=== PATIENT | male | born 1970 | race Caucasian/White ===

== ENCOUNTER 2018-06-20 15:25 | Emergency (ER) | payer OTHER ==
[2018-06-20 15:42] VITALS: BP 130/90; PULSE 90; TEMP 98.3; BMI 29.1
[2018-06-20] MEDS ORDERED: DIPHTH,PERTUSS(ACELL),TET 0.5 ML DISP.SYRIN IM ONE (16:15)
--- NOTE | 2018-06-20 16:15 | PDOC ---
Attending Attestation - Resident Resident Name: Chelsie Epstein - ED Attending Attestation I have performed the following: I have examined & evaluated the patient, The case was reviewed & discussed with the resident, I agree w/resident's findings & plan, Exceptions are as noted - HPI HPI: 06/20/18 16:57 Laceration of the right thumb this morning on a piece of sheet metal. Denies pain, bleeding, numbness or tingling in the fingertip, or limited range of motion of the thumb. Presents primarily because he feels he needs a tetanus update. Otherwise healthy without history of diabetes 06/20/18 16:58 - Physicial Exam PE: 06/20/18 16:58 PE: Afebrile, normal vital signs Right thumb: 1 cm superficial laceration of the radial aspect of the thumb, longitudinal, over the midportion of the first metacarpal. No bleeding. Wound edges are adequately approximated. No sensory deficit to the tip of the thumb. Full range of motion against resistance and flexion extension and apposition. Good capillary refill - Medical Decision Making 06/20/18 16:59 Impression: Superficial finger laceration Plan: Tetanus booster. Repair of laceration by Dr. Epstein. Follow-up and wound check 2-3 days.
--- NOTE | 2018-06-20 17:19 | PDOC ---
History of Present Illness - General Chief Complaint: Injury Stated Complaint: LACERATION TO FINGER - History of Present Illness Initial Comments: Deandre Johnson is an otherwise healthy 47yo man who presents today following a laceration to the right thumb. He states that he cut his thumb on a stove at home today. Initially he had some difficulty controlling the bleeding, but eventually it did stop with continued pressure. He washed the wound with water as well as hydrogen peroxide and applied a clean bandage. He has not had any numbness, difficulty with thumb movement, and has not noticed that his thumb is cold or pale. Mr Johnson presented to the ED today because he cut this thumb on metal and does not believe that his tetanus shot is up to date. He has no other concerns at this time. Past History - Past Medical History Allergies/Adverse Reactions: Allergies Allergy/AdvReac Type Severity Reaction Status Date / Time No Known Allergies Allergy Unverified 06/20/18 15:34 Home Medications: Ambulatory Orders No Home Medications 0 dose .ROUTE UTDICT 03/19/14 COPD: No - Suicide/Smoking/Psychosocial Hx Smoking History: Never smoked Hx Alcohol Use: No Substance Use Type: None Review of Systems - Review of Systems Comments:: General: No fevers, no chills, no weight or appetite change, no malaise HEENT: No changes in vision, no changes in hearing, no congestion, no sore throat CV: No chest pain, no palpitations, no LE edema Pulm: No SOB, no cough, no wheezing GI: No nausea or vomiting, no change in bowel habits, no melena : No frequency, no urgency, no dysuria Musc: No back pain, no joint swelling, no recent injury Skin: No rash, no lesions, no erythema Endo: No excessive thirst, no heat/cold intolerance Heme: No unusual bruising or bleeding, no swollen glands Neuro: No syncope, no numbness/tingling, no focal weakness Vasc: No claudication Psych: No recent change in mood, no SI or HI *Physical Exam - Vital Signs Last Vital Signs Temp Pulse Resp BP Pulse Ox 98.3 F 90 18 130/90 100 06/20/18 15:31 06/20/18 15:31 06/20/18 15:31 06/20/18 15:31 06/20/18 15:31 - Physical Exam Comments: General: Comfortable, no acute distress HEENT: PERRL, EOMI, MMM, voice normal, normal neck ROM, no LAD Cards: RRR, no murmur appreciated Pulm: Comfortable on room air, clear to auscultation bilaterally Ext: Right thumb with approximately 1cm, clean, linear laceration. Sensation to light touch intact over thumb. Active and passive ROM including flexion, extension and opposition intact. No active bleeding, no surrounding erythema or edema. Vasc: Extremities WWP. Palpable radial and pedal pulses bilaterally Neuro: A&Ox3, CN grossly intact, normal speech, motor/sensory grossly intact and symmetric Psych: Mood appropriate to situation Procedures - Laceration/Wound Repair Right 1st digit Wound Explored: clean Wound's Depth, Shape: superficial, linear Irrigated w/ Saline: Yes Betadine Prep: Yes Anesthesia: 1% Lidocaine Amount of Anesthetic (ccs): 2 Wound Repaired With: Sutures Suture Size/Type: 4:0 Number of Sutures: 3 Sterile Dressing Applied: Yes (bacitracin, band-aid) Splint Applied: No Sling Applied: No ED Treatment Course - Medications Given in the ED: ED Medications Discontinued Medications Generic Name Dose Route Start Last Admin Trade Name Freq PRN Reason Stop Dose Admin Diphtheria/Tetanus/Acell Pertussis 0.5 ml 06/20/18 16:15 06/20/18 16:21 Boostrix - IM 06/20/18 16:16 0.5 ml ONCE ONE Administration Medical Decision Making - Medical Decision Making Deandre Johnson is an otherwise healthy 47yo man who presents today after sustaining a laceration to the right thumb at home. - Tetanus shot given - Wound cleaned and evaluated. Though laceration is short, it is relatively deep and should be sutured. Sensation, ROM, strength intact so no concern for more severe injury, tendon, or nerve damage - Wound repaired at bedside with 4.0 nylon suture. 2cc of 1% lidocaine for local anesthesia. 3 sutures placed - Discussed suture removal and return precautions with Mr Johnson. He stated understanding. Will discharge home; should follow up with his primary physician within the next week. *DC/Admit/Observation/Transfer Diagnosis at time of Disposition: Laceration - Discharge Dispostion Disposition: HOME Condition at time of disposition: Good Decision to Admit order: No - Referrals Referrals: Marcello Dale MD [Staff Physician] - - Patient Instructions Printed Discharge Instructions: DI for Suture Removal Additional Instructions: Discharge Instructions: - You were seen in the ED for a laceration - You had 3 stitches placed in your thumb - Please keep your laceration clean and dry. Your stitches will need to be removed in 7-10 days - Please seek medical attention if you have redness and swelling around the cut , increased drainage, red streaks up your arm, or pus draining from the wound. - Follow up with either your primary physician or the ED for removal of the stitches - Post Discharge Activity
== END 2018-06-20 17:28 | disposition home or self-care (01) ==
LOC: FER 15:25
PROC: 0HQFXZZ Repair Right Hand Skin, External Approach (ICD-10-PCS; principal; 2018-06-20)
PROC: 3E0234Z Introduction of Serum, Toxoid and Vaccine into Muscle, Percutaneous Approach (ICD-10-PCS; 2018-06-20)
DX: S61.011A Laceration without foreign body of right thumb without damage to nail, initial encounter (principal); W26.9XXA Contact with unspecified sharp object(s), initial encounter; Y93.89 Activity, other specified; Y92.009 Unspecified place in unspecified non-institutional (private) residence as the place of occurrence of the external cause
CPT/HCPCS: 90715; 99282-25